=== PATIENT | female | born 1955 | race Caucasian/White ===

== ENCOUNTER 2021-12-27 06:49 | Day surgery (SDC) | payer MEDICARE, OTHER ==
[~2021-12-27 06:49] MED LIST: Sodium Chloride 0.9% 10 ML Syringe FLUSH PRN
[2021-12-27] MEDS ORDERED: Propofol 200 MG/20 ML SDV IV ONE (06:50)
[2021-12-27] MEDS ORDERED: Lidocaine 1% PF 2 ML SDV INJECT ONE (06:50)
[2021-12-27] MEDS: Lactated Ringers 1,000 ML IV SCH (07:17)
[2021-12-27] MEDS: Simethicone Drops 40 MG/0.6 ML 30 ML Bottle ONE (08:24)
== END 2021-12-27 09:44 | disposition home or self-care (01) ==
LOC: FB.SDS 06:49
PROVIDERS: ATTEND Surgery
DX: Z12.11 Encounter for screening for malignant neoplasm of colon (principal); D12.8 Benign neoplasm of rectum; I10 Essential (primary) hypertension; D64.9 Anemia, unspecified; K21.9 Gastro-esophageal reflux disease without esophagitis; Z98.890 Other specified postprocedural states; Z88.0 Allergy status to penicillin; Z79.899 Other long term (current) drug therapy
CPT/HCPCS: 00811; 45385; 88305; A9270; J2704; J7120